=== PATIENT | male | born 1995 | race Caucasian/White ===

== ENCOUNTER 2022-09-19 12:11 | Outpatient (CLI) | payer OTHER, SELFPAY ==
[2022-09-19 14:59] LABS: Chloride* 105 mmol/L (96-114); Potassium* 4.9 mmol/L (3.6-5.1); Sodium* 142 mmol/L (135-149)
[2022-09-19 15:01] LABS: Cholesterol* 182 mg/dL (90-199); Estimated Glomerular Filt Rate 104 ml/min
[2022-09-19 15:02] LABS: Blood Urea Nitrogen* 15 mg/dL (5-24); Calcium* 9.8 mg/dL (8.4-10.6); Carbon Dioxide* 29 mmol/L (20-32); Glucose* 90 mg/dL (60-115); Triglycerides* 34 mg/dL (40-149)
[2022-09-19 15:03] LABS: HDL Cholesterol* 61 mg/dL (>=40); LDL Cholesterol Calculated 114 mg/dL (<100)
== END 2022-09-19 12:12 | disposition home or self-care (01) ==
PROVIDERS: PCP Family Medicine; Visit Provider Family Medicine
DX: Z00.00 Encounter for general adult medical examination without abnormal findings (principal); Z13.6 Encounter for screening for cardiovascular disorders
CPT/HCPCS: 80048; 80061

== ENCOUNTER 2023-09-29 13:59 | Outpatient (CLI) | payer OTHER, SELFPAY | END 2023-09-29 14:00 | disposition home or self-care (01) | PROVIDERS: PCP Family Medicine; Visit Provider Family Medicine | DX: Z00.00 Encounter for general adult medical examination without abnormal findings (principal); Z13.6 Encounter for screening for cardiovascular disorders | CPT/HCPCS: 80048; 80061 ==

== ENCOUNTER 2024-08-31 13:01 | Outpatient (CLI) | payer OTHER, SELFPAY | END 2024-08-31 13:02 | disposition home or self-care (01) | PROVIDERS: PCP Family Medicine; Visit Provider Family Medicine | DX: Z13.6 Encounter for screening for cardiovascular disorders (principal); Z78.9 Other specified health status | CPT/HCPCS: 80048; 80061 ==

== ENCOUNTER 2025-09-05 13:43 | Outpatient (CLI) | payer OTHER, SELFPAY | END 2025-09-05 13:44 | disposition home or self-care (01) | PROVIDERS: PCP Family Medicine; Visit Provider Family Medicine | DX: Z00.00 Encounter for general adult medical examination without abnormal findings (principal) | CPT/HCPCS: 80048; 80061 ==